=== PATIENT | female | born 1985 | race Caucasian/White ===

== ENCOUNTER 2017-05-09 22:52 | Emergency (ER) | payer SELFPAY ==
[~2017-05-09] VITALS: Ht 162.6 cm; Wt 52.0 kg
[~2017-05-09 22:52] MED LIST: MELO7.5 PO; OXYC30TA PO; PREN0.01 PO; TIZA4 PO
[2017-05-09 23:05] VITALS: BP 118/80; PULSE 79; RESP 16; TEMP 98.6; O2SAT 100
== END 2017-05-10 01:28 | disposition left against medical advice (07) ==
LOC: NED 23:59
DX: T76.21XA Adult sexual abuse, suspected, initial encounter (principal); Z53.21 Procedure and treatment not carried out due to patient leaving prior to being seen by health care provider
CPT/HCPCS: 99281